=== PATIENT | male | born 1985 | race Caucasian/White ===

== ENCOUNTER 2019-05-24 09:56 | Emergency (ER) | payer OTHER, SELFPAY ==
[2019-05-24 10:08] VITALS: BP 145/75; PULSE 76; RESP 18; TEMP 36.9; O2SAT 100
--- NOTE | 2019-05-24 10:11 | DI.RAD.S_ITS ---
PROCEDURE: XR FINGER LT MIN 2V INDICATIONS: crush injury TECHNIQUE: AP hand, 2 views of the third finger(s) acquired. COMPARISON: [facility], , FINGER LT, 02/23/2015, 15:16. FINDINGS: Bones: No fractures or dislocations. No suspicious bony lesions. Soft tissues: No suspicious soft tissue calcifications. IMPRESSION: No visualized acute fracture or dislocation. However, if clinical concern and/or pain persist, short interval imaging followup in 7-10 days is recommended, as occult injury cannot be definitively excluded. Dictated by: Jovanna Robins M.D. on 05/24/2019 at 9:37 Approved by: Jovanna Robins M.D. on 05/24/2019 at 9:37
--- NOTE | 2019-05-24 10:18 | ED.UPPEXIN ---
HPI - Extremity Injury (Upper) General Chief Complaint: Extremity Injury, Upper Stated Complaint: Possible broken left pinky Time Seen by Provider: 05/24/19 10:18 Source: patient Mode of arrival: Ambulatory Limitations: no limitations History of Present Illness HPI narrative: Otherwise healthy 33-year-old gentleman who got his left pinky finger stuck between 2 objects at work today. He is worried that he may have broken. He still has full range of motion there is some discoloration and pain has been nicely controlled with ibuprofen taken prior to arriva. There are no other associated injuries or concerns. Related Data Home Medications Medication Instructions Recorded Confirmed No Known Home Medications 05/24/19 05/24/19 Allergies Allergy/AdvReac Type Severity Reaction Status Date / Time Penicillins [PENICILLINS] Allergy Severe Anaphylaxis Verified 05/24/19 10:11 Review of Systems Review of Systems Narrative: Denies ? fever ? cough ? cold ? chills ? chest pain ? dyspnea ? orthopnea ? wheezing ? abdominal pain ? change to bowel or bladder habits ? nausea vomiting ? skin changes ? rashes Patient History Social History Smoking Status: Former smoker Smoking Status: Former smoker alcohol intake frequency: 0-2 drinks per day Substance Use Type: does not use Exam Narrative Exam Narrative: General: Alert appropriate in no acute distress Respiratory: Able to speak in full sentences, no obvious respiratory distress Skin: No obvious rashes, warm and dry Neurologic: Grossly intact no obvious asymmetries or abnormalities Left hand: Ecchymosis to the tip of the pinky with no significant nail damage and neurovascularly intact. Initial Vital Signs Initial Vital Signs: Vital Signs Temperature 98.4 F 05/24/19 10:08 Pulse Rate 76 05/24/19 10:08 Respiratory Rate 18 05/24/19 10:08 Blood Pressure 145/75 H 05/24/19 10:08 Pulse Oximetry 100 05/24/19 10:08 Course Orders Ordered: ED Orders 05/24/19 10:11 XR finger LT min 2V Stat Vital Signs Vital signs: Vital Signs - 8 hr 05/24/19 10:08 Temperature 98.4 F Pulse Rate 76 Respiratory Rate 18 Blood Pressure 145/75 H Pulse Oximetry 100 MDM - Extremity Injury (Upper) Medical Records Attestation: I reviewed the patient's medical records. Imaging Data Fingers: Radiologist's Impression: IMPRESSION: No visualized acute fracture or dislocation. However, if clinical concern and/or pain persist, short interval imaging followup in 7-10 days is recommended, as occult injury cannot be definitively excluded. Dictated by: Jovanna Robins M.D. on 05/24/2019 at 9:37 MDM Narrative Medical decision making narrative: Small subungual hematoma. A hole was drilled with an 18 gauge needle to relieve some of the pressure with a small amount of blood able to be expressed. Small dressing is placed and patient is reassured. L & I forms are filled out. Discharge Plan Departure Patient Disposition: Home Clinical Impression: Subungual hematoma Crush injury to finger Qualifiers: Encounter type: initial encounter Qualified Code(s): S67.10XA - Crushing injury of unspecified finger(s), initial encounter Instructions: DI for Subungual Hematoma Activity Restrictions/Additional Instructions: Thank you for coming in today Your pinky does not look like it is broken. I used a small needles to make a tiny hole at the base of your fingernail to relieve some of the pressure and help with the pain. You may lose this fingernail. You want to take care to avoid hitting and bumping it for the next couple of days, it will be quite sensitive. I hope you heal quickly Prescriptions: No Action No Known Home Medications RF: 0
== END 2019-05-24 10:58 | disposition home or self-care (01) ==
PROVIDERS: Emergency Provider Emergency Medicine
DX: S67.197A Crushing injury of left little finger, initial encounter (principal); S60.052A Contusion of left little finger without damage to nail, initial encounter; W22.8XXA Striking against or struck by other objects, initial encounter; Y99.0 Civilian activity done for income or pay
CPT/HCPCS: 73140; 99283